=== PATIENT | female | born 1950 | race Caucasian/White ===

== ENCOUNTER → 2018-07-25 | Outpatient (CLI) | payer MEDICARE, BC ==
[~2018-07-25] MED LIST: ACET500T68 PO; ASPI1TAB31 PO; ATOR20TA58 PO; BREO ELLIPTA 21 EACH IH; BUPR300T3 PO; BUSP15TA PO; CHOL500016 PO; FAMO20TA5 PO; GABA-586 PO; GABA600T2 PO; HYDR-2762 PO; METF10007 PO; METH750T2 PO; MULT-460 PO; NAPR220C4 PO; ONDA4TAB12 PO; OXYC1TAB7 PO; PROAIR HFA8.5 GM INH; PSEU120T9 PO; VENL150C PO; VITA150T PO; VITA1TAB19 PO; ZINC50TA2 PO
[2018-07-25 16:10] LABS: BASO # 0.1 x10^3/uL (0.0-0.2); BASO % 1 % (0-3); EOS # 0.3 x10^3/uL (0.0-0.7); EOS % 3 % (0-3); HEMATOCRIT 40.3 % (36.0-47.0); HEMOGLOBIN 13.5 g/dL (12.0-15.5); LYMPH # 2.7 x10^3/uL (1.0-4.8); LYMPH % 25 % (24-48); MEAN CORPUSCULAR HEMOGLOBIN 31 pg (25-35); MEAN CORPUSCULAR HGB CONC 34 g/dL (31-37); MEAN CORPUSCULAR VOLUME 91 fL (79-100); MONO # 0.6 x10^3/uL (0.0-1.1); MONO % 5 % (0-9); NEUT # 7.3 x10^3uL (1.8-7.7); NEUT % 67 % (31-73); PLATELET COUNT 324 x10^3/uL (140-400); RED BLOOD COUNT 4.42 x10^6/uL (3.50-5.40); RED CELL DISTRIBUTION WIDTH 15.1 % (11.5-14.5); WHITE BLOOD COUNT 10.9 x10^3/uL (4.0-11.0)
--- NOTE | 2018-07-25 16:15 | EKG ---
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
[2018-07-25 16:18] LABS: PROTHROMBIN TIME PATIENT 12.7 SEC (11.7-14.0)
[2018-07-25 16:41] LABS: ALBUMIN 3.5 g/dL (3.4-5.0); ALBUMIN/GLOBULIN RATIO 1.1 (1.0-1.7); CALCIUM 9.7 mg/dL (8.5-10.1); GFR 55.5; POTASSIUM 4.2 mmol/L (3.5-5.1); TOTAL BILIRUBIN 0.5 mg/dL (0.2-1.0); TOTAL PROTEIN 6.6 g/dL (6.4-8.2)
[2018-07-26 04:18] LABS: HEMOGLOBIN A1C 6.1 % (4.8-5.6)
== END | disposition home or self-care (01) ==
LOC: SURGPAT 13:51
PROVIDERS: ATTEND Neurological Surgery
DX: Z01.818 Encounter for other preprocedural examination (principal); M48.02 Spinal stenosis, cervical region; M54.12 Radiculopathy, cervical region; I10 Essential (primary) hypertension; R94.31 Abnormal electrocardiogram [ECG] [EKG]
CPT/HCPCS: 36415; 80053; 83036; 85025; 85610; 85730; 87641; 93005

== ENCOUNTER → 2019-12-04 | Outpatient (CLI) | payer MEDICARE ==
[2018-08-04 11:09] VITALS: BP 140/77
[~2019-12-04] MED LIST changes: +ALBU2.5V8 INH; -GABA-586 PO; +GABA300C18 PO; -GABA600T2 PO; +GABA600T7 PO; -HYDR-2762 PO; +HYDR-2765 PO; -PROAIR HFA8.5 GM INH
--- NOTE | 2019-12-04 16:39 | RAD ---
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 TECHNIQUE: AP and frog-leg lateral views of the left hip along with an AP view of the pelvis were obtained COMPARISON: None FINDINGS: There is mild generalized demineralization. There is normal bony alignment present with the femoral heads well-seated within the acetabuli. There is no evidence of acute fracture or dislocation identified. The overlying soft tissues are grossly unremarkable. IMPRESSION: No acute findings in the left hip. No aggressive osseous lesions identified. MRI would be more sensitive in evaluation of a marrow infiltrative process such as lymphoma if clinically suspected. It could also identify occult fractures not otherwise shown on x-ray. Electronically signed by: Karly García MD (12/04/2019 4:36 PM) [facility]
== END | disposition home or self-care (01) ==
LOC: RAD 14:00
PROVIDERS: ATTEND Internal Medicine Hematology & Oncology
DX: C82.08 Follicular lymphoma grade I, lymph nodes of multiple sites (principal); M25.552 Pain in left hip
CPT/HCPCS: 73502